=== PATIENT | male | born 1965 | race Caucasian/White ===

== ENCOUNTER 2024-12-07 06:15 | Day surgery (SDC) | payer BC, SELFPAY ==
[2024-11-26 11:56] LABS: ALT (SGPT) 27 U/L (0-50); AST (SGOT) 26 U/L (17-59); Albumin 4.5 g/dl (3.5-5.0); Alkaline Phosphatase 43 U/L (38-126); Blood Urea Nitrogen 21 mg/dl (9-20); Calcium 9.6 mg/dl (8.4-10.2); Carbon Dioxide 24 mmol/L (22-30); Chloride 105 mmol/L (98-107); Glucose 89 mg/dl (70-99); Potassium 4.3 mmol/L (3.5-5.1); Sodium 136 mmol/L (135-145); Total Protein 6.8 g/dl (6.3-8.2); eGFR > 60.00
[2024-11-26 16:40] VITALS: BMI 26.0
[2024-12-07] VITALS (8 sets, daily range): BP systolic 120–131; BP diastolic 73–82; BMI 26.0
[2024-12-07] MEDS: CELEBREX 200 MG PO (08:22)
[2024-12-07] MEDS: TYLENOL 1000 MG PO (08:22)
[2024-12-07] MEDS: NORMOSOL-R/PLASMALYTE-A 1000 IV (08:23)
== END 2024-12-07 14:24 | disposition home or self-care (01) ==
LOC: SDS 06:15
PROVIDERS: ATTENDING PHYSICIAN Specialist; FAMILY PHYSICIAN Internal Medicine
DX: S46.011A Strain of muscle(s) and tendon(s) of the rotator cuff of right shoulder, initial encounter (principal); S46.219A Strain of muscle, fascia and tendon of other parts of biceps, unspecified arm, initial encounter; X58.XXXA Exposure to other specified factors, initial encounter
CPT/HCPCS: 23430; 36415; 80053; 93005; C1713